=== PATIENT | female | born 1985 | race Caucasian/White ===

== ENCOUNTER 2017-01-25 12:04 | Emergency (ER) | payer SELFPAY ==
[~2017-01-25] VITALS: Ht 170.2 cm; Wt 86.0 kg
[2017-01-25 12:08] VITALS: BP 130/80; PULSE 86; RESP 18; TEMP 97.9; O2SAT 99
[2017-01-25] MEDS ORDERED: GUAI1TAB27 PO (12:18)
--- NOTE | 2017-01-25 12:48 | PD ---
HPI Chief Complaint: Cold / Flu Symptoms Time Seen by Provider: 12:44 Travel History International Travel<30 days: No Contact w/Intl Traveler<30days: No Traveled to known affect area: No History of Present Illness HPI 31-year-old female presents to the emergency department for evaluation of nasal congestion, sore throat, cough for 1 week. States that she has had a productive cough with green sputum for the past week. States that she did notice some itching in her right ear yesterday. She denies any fever, chills, nausea, vomiting, diarrhea, constipation, shortness of breath, difficulty breathing. She also complains of urinary frequency for 1 month and burning with urination for 2 days. She denies any abdominal pain, back pain, vaginal discharge. States she is unsure of status however her last menstrual period was 3 weeks ago. No other complaints. PFSH Past Medical History Medical History: Denies Significant Hx Diminished Hearing: No Influenza Vaccination: No ?: Unknown LMP: 01/2017 Past Surgical History Surgical History: No Previous Surgery Social History Alcohol Use: No Tobacco Use: No Allergies-Medications (Allergen,Severity, Reaction): Coded Allergies: Penicillin (Verified Allergy, Unknown, UNKNOWN, 01/25/17) Reported Meds & Prescriptions Reported Meds & Active Scripts Active Cortisporin HC Otic Drops (Zpoqcgnt-Iigkldriw-FX Otic Drops) 3.5-10,000-1 Mg- Units-% Soln 4 Drop RIGHT EAR QID 7 Days Keflex (Cephalexin) 500 Mg Cap 500 Mg PO Q12H 7 Days Reported Mucinex Maximum Strength ER 12 HR (Guaifenesin) 1,200 Mg Ron 1,200 Mg PO BID Review of Systems Except as stated in HPI: all other systems reviewed are Neg Physical Exam Narrative GENERAL: Well-nourished and well-developed pleasant patient in no acute distress who is nontoxic appearing. SKIN: Warm and dry. HEAD: Normocephalic and atraumatic. EYES: No injection, drainage, or hyphema noted. PERRLA. EOMI. ENT: Erythema and swelling of nasal mucosa with clear mucus. Oropharynx is clear. Right ear canal is erythematous and mildly swollen. Left ear canal is within normal limits. TMs are normal with good landmarks bilaterally. NECK: Supple and the trachea is midline. CARDIOVASCULAR: Regular rate and rhythm. RESPIRATORY: Breath sounds are equal bilaterally with no accessory muscle use, wheezing, rhonchi, or crackles. GASTROINTESTINAL: Abdomen is soft, non-tender, and nondistended. MUSCULOSKELETAL: No obvious deformities, swelling, cyanosis, or ecchymosis is present throughout the upper and lower extremities. Patient has full range of motion without any signs of neurovascular compromise. NEUROLOGICAL: Awake, alert, and oriented. Normal speech and gait. Cranial nerves are grossly intact. Data Data Last Documented VS Vital Signs Date Time Temp Pulse Resp B/P Pulse Ox O2 Delivery O2 Flow Rate FiO2 01/25/17 12:15 18 01/25/17 12:08 97.9 86 130/80 99 Orders Urinalysis - C+S If Indicated (01/25/17 12:43) Ed Urine Pregnancytest Poc (01/25/17 12:43) Urine Culture (01/25/17 12:45) Labs Laboratory Tests Test 01/25/17 12:45 Urine Collection Type CLEAN CATCH Urine Color YELLOW Urine Turbidity CLOUDY Urine pH 7.5 Urine Specific [place] 1.029 Urine Protein 30 mg/dL Urine Glucose (UA) NEG mg/dL Urine Ketones TRACE mg/dL Urine Occult Blood NEG Urine Nitrite NEG Urine Bilirubin NEG Urine Leukocyte Esterase MOD Urine WBC 9-14 /hpf Urine Squamous Epithelial > 8 /hpf Cells Urine Amorphous Sediment MOD Urine Bacteria FEW /hpf Microscopic Urinalysis Comment CULTURE INDICATED Urine Collection Time 1245 MDM Medical Decision Making Medical Screen Exam Complete: Yes Emergency Medical Condition: Yes Differential Diagnosis URI versus bronchitis versus viral syndrome versus otitis externa versus UTI Narrative Course 31-year-old female presents to the emergency department for evaluation of cough and cold symptoms, right ear itching and dysuria. Patient is afebrile, vital signs are stable. On physical examination she has some redness to the right auditory canal, she'll be treated with Cortisporin otic drops. Urinalysis has been ordered and is pending. ED urine test is negative. Urinalysis shows 30 protein, trace ketones, moderate leukocyte esterase, 9-14 white blood cells, 8 squamous epithelial cells and few bacteria. She'll be treated for urinary tract infection with Keflex and otitis externa with Cortisporin Otic drops. Advised follow-up with her PCP. Diagnosis Primary Impression: Urinary tract infection Qualified Code: N39.0 - Urinary tract infection without hematuria, site unspecified Additional Impressions: Otitis externa Qualified Code: H60.501 - Acute otitis externa of right ear, unspecified type URI (upper respiratory infection) Qualified Code: J06.9 - Viral upper respiratory tract infection Referrals: Primary Care Physician Patient Instructions: General Instructions, Otitis Externa (ED), Upper Respiratory Infection (ED), Urinary Tract Infection in Women (ED) Additional Instructions: Rest. Drink plenty of fluids. Take medications as prescribed. Use drops as prescribed. Follow-up with your Primary Care Physician. Return to the ED for any acute worsening of symptoms. Med/Other Pt SpecificInfo: Prescription(s) given Scripts Haicxvie-Hnhiellpc-DR Otic Drops (Cortisporin HC Otic Drops)3.5-10,000-1 Mg- Units-% Soln4 Drop RIGHT EAR QID 7 Days Ref 0 Prov:Cade Corrales MD 01/25/17 Cephalexin (Keflex)500 Mg Ery699 Mg PO Q12H 7 Days Ref 0 Prov:Cade Corrales MD 01/25/17 Disposition: 01 DISCHARGE HOME Condition: Stable Giana Lauren Jan 25, 2017 12:47
[2017-01-25 12:56] LABS: BLOOD, URINE NEG (NEG); GLUCOSE,URINE NEG (NEG); KETONE, URINE TRACE mg/dL (NEG); NITRITE,URINE NEG (NEG); PH, URINE 7.5 (5.0-8.5)
[2017-01-25 13:08] LABS: METHOD OF COLLECTION CLEAN CATCH
[2017-01-25 13:09] LABS: URINE COLOR YELLOW (YELLW/STRAW)
[2017-01-25 13:10] LABS: BACTERIA, URINE FEW /hpf; COMMENT (UR) CULTURE INDICATED; COMMENT2 (UR) MUCOUS PRESENT; CULTURE IF INDICATED CULTURE INDICATED; SQUAMOUS EPITHELIAL CELL URINE > 8 /hpf (0-5)
[2017-01-25] MEDS ORDERED: CORT1SOL RIGHT EAR (13:21)
[2017-01-25] MEDS ORDERED: CEPH-460 PO (13:21)
== END 2017-01-25 13:33 | disposition home or self-care (01) ==
LOC: PHEFT 12:04
DX: N39.0 Urinary tract infection, site not specified (principal); H60.501 Unspecified acute noninfective otitis externa, right ear; J06.9 Acute upper respiratory infection, unspecified
CPT/HCPCS: 81001; 84703; 87086; 99283